=== PATIENT | female | born 1980 | race African-American/Black ===

== ENCOUNTER 2020-07-08 09:42 | Inpatient (IN) | payer BC ==
[2020-07-08 11:05] VITALS: BMI 23.3
[2020-07-08] MEDS ORDERED: LOPERAMIDE HCL 2 MG CAPSULE PO PRN (15:19)
[2020-07-08] MEDS ORDERED: guaiFENesin 200 MG/10 ML 10 ML UNIT-DOSE CUPS PO PRN (15:19)
[2020-07-08] MEDS ORDERED: MAGNESIUM HYDROX 2400MG/30ML ORAL SUSPENSION 30 ML CUP PO PRN (15:19)
[2020-07-08] MEDS ORDERED: MAG HYDROX/AL HYDROX/SIMETH 30 ML UNIT-DOSE CUP PO PRN (15:19)
[2020-07-08] MEDS ORDERED: P-EPHED 60MG/TRIPROLIDI 2.5MG TABLET PO PRN (15:19)
[2020-07-08] MEDS ORDERED: MAGNESIUM CITRATE 300 ML BOTTLE PO PRN (15:19)
[2020-07-08] MEDS: hydrOXYzine PAMOATE 25 MG CAPSULE (FP) PO SCH ×2 (18:07→22:01)
[2020-07-08] MEDS: MELATONIN 5 MG TABLETS PO SCH (22:01)
[2020-07-08] MEDS: THIAMINE HCL 100 MG TABLET (FP) PO SCH (22:01)
[2020-07-08] MEDS: IBUPROFEN 400 MG TABLET (FP) PO PRN (22:26)
[2020-07-09] MEDS: hydrOXYzine PAMOATE 25 MG CAPSULE (FP) PO SCH ×2 (06:34→10:13)
[2020-07-09] MEDS ORDERED: PT OWN MED DRAWER 7, Y5N ONE ×3 (09:01→14:05)
[2020-07-09] MEDS: PRENATAL VITAMINS W/ FOLIC ACID TABLET (FP) PO SCH (10:11)
[2020-07-09] MEDS: BICTEGRAV/EMTRICIT/TENOFOV (BIKTARVY) 50-200-25 MG TABLET PO SCH (10:12)
[2020-07-09] MEDS: levETIRAcetam 500 MG TABLET (FP) PO SCH (10:12)
[2020-07-09 11:37] LABS: HEMATOCRIT 35.7 % (32.4-45.2); HEMOGLOBIN 11.8 GM/dL (10.7-15.3); MCH 27.6 pg (25.7-33.7); MEAN CELL VOLUME 83.6 fl (80-96); MEAN PLT VOLUME 7.7 fl (7.5-11.1); PLATELET COUNT 367 K/MM3 (134-434); RBC 4.27 M/mm3 (3.60-5.2); RDW 14.9 % (11.6-15.6); WHITE BLOOD COUNT 3.6 K/mm3 (4.0-10.0)
[2020-07-09 11:48] LABS: BLOOD UREA NITROGEN 13.4 mg/dL (7-18)
[2020-07-09 11:49] LABS: ALBUMIN 3.4 g/dl (3.4-5.0)
[2020-07-09 11:50] LABS: BILIRUBIN,TOTAL 0.2 mg/dL (0.2-1)
[2020-07-09 11:52] LABS: CREATININE 0.9 mg/dL (0.55-1.3)
[2020-07-09] MEDS ORDERED: hydrOXYzine PAMOATE 25 MG CAPSULE (FP) PO PRN (12:06)
[2020-07-09] MEDS: SULFAMETHOXAZOLE/TRIMETHOPRIM 400MG/80MG S.S. TABLET PO SCH (14:03)
[2020-07-09] MEDS: ACETAMINOPHEN 325 MG TABLET (FP) PO PRN (14:05)
[2020-07-09] MEDS: THIAMINE HCL 100 MG TABLET (FP) PO SCH (21:46)
[2020-07-09] MEDS: traZODone HCL 50 MG TABLET (FP) PO SCH (21:46)
[2020-07-09] MEDS: MELATONIN 5 MG TABLETS PO SCH (21:46)
[2020-07-10] MEDS ORDERED: PT OWN MED DRAWER 7, Y5N ONE (08:49)
[2020-07-10] MEDS: levETIRAcetam 500 MG TABLET (FP) PO SCH (10:07)
[2020-07-10] MEDS: PRENATAL VITAMINS W/ FOLIC ACID TABLET (FP) PO SCH (10:07)
[2020-07-10] MEDS: BICTEGRAV/EMTRICIT/TENOFOV (BIKTARVY) 50-200-25 MG TABLET PO SCH (10:07)
[2020-07-10] MEDS: SULFAMETHOXAZOLE/TRIMETHOPRIM 400MG/80MG S.S. TABLET PO SCH (10:08)
[2020-07-10] MEDS: ACETAMINOPHEN 325 MG TABLET (FP) PO PRN (16:19)
[2020-07-10] MEDS: MELATONIN 5 MG TABLETS PO SCH (21:34)
[2020-07-10] MEDS: THIAMINE HCL 100 MG TABLET (FP) PO SCH (21:34)
[2020-07-10] MEDS: traZODone HCL 50 MG TABLET (FP) PO SCH (21:34)
[2020-07-11] MEDS ORDERED: PT OWN MED DRAWER 7, Y5N ONE (08:49)
[2020-07-11] MEDS: PRENATAL VITAMINS W/ FOLIC ACID TABLET (FP) PO SCH (09:56)
[2020-07-11] MEDS: levETIRAcetam 500 MG TABLET (FP) PO SCH (09:57)
[2020-07-11] MEDS: SULFAMETHOXAZOLE/TRIMETHOPRIM 400MG/80MG S.S. TABLET PO SCH (09:57)
[2020-07-11] MEDS: BICTEGRAV/EMTRICIT/TENOFOV (BIKTARVY) 50-200-25 MG TABLET PO SCH (09:58)
[2020-07-11] MEDS: IBUPROFEN 400 MG TABLET (FP) PO PRN (15:10)
[2020-07-11 18:07] LABS: EPI CELLS >36 /uL (0-25.1); HYALINE CASTS 1 /uL (0-3.1); URINE APPEARANCE CLOUDY; URINE BACTERIA 3353 /uL (0-1359); URINE BILIRUBIN NEGATIVE (NEGATIVE); URINE COLOR YELLOW; URINE GLUCOSE (UA) NEGATIVE (NEGATIVE); URINE KETONE NEGATIVE (NEGATIVE); URINE LEUK ESTERASE TRACE (NEGATIVE); URINE NITRITE NEGATIVE (NEGATIVE); URINE PROTEIN NEGATIVE (NEGATIVE); URINE RBC 40 /uL (0-23.9); URINE UROBILINOGEN 0.2 mg/dL (0.2-1.0); URINE WBC 63 /uL (0-25.8)
[2020-07-11] MEDS: traZODone HCL 50 MG TABLET (FP) PO SCH (21:39)
[2020-07-11] MEDS: THIAMINE HCL 100 MG TABLET (FP) PO SCH (21:40)
[2020-07-11] MEDS: MELATONIN 5 MG TABLETS PO SCH (21:40)
[2020-07-12 07:19] VITALS: BP 114/73; PULSE 52; TEMP 97.6
[2020-07-12] MEDS: levETIRAcetam 500 MG TABLET (FP) PO SCH (10:04)
[2020-07-12] MEDS: PRENATAL VITAMINS W/ FOLIC ACID TABLET (FP) PO SCH (10:04)
[2020-07-12] MEDS: SULFAMETHOXAZOLE/TRIMETHOPRIM 400MG/80MG S.S. TABLET PO SCH (10:05)
[2020-07-12] MEDS: BICTEGRAV/EMTRICIT/TENOFOV (BIKTARVY) 50-200-25 MG TABLET PO SCH (10:05)
[2020-07-13 10:07] LABS: SARS-CoV-2 NAA Not Detected (Not Detected)
== END 2020-07-12 11:00 | disposition home or self-care (01) | DRG 772 ==
LOC: YASAS 09:42 → Y5N 15:38
PROVIDERS: ADMIT Allergy & Immunology; ATTEND Allergy & Immunology
PROC: HZ42ZZZ Group Counseling for Substance Abuse Treatment, Cognitive-Behavioral (ICD-10-PCS; principal; 2020-07-08)
DX: F14.20 Cocaine dependence, uncomplicated (principal); F10.20 Alcohol dependence, uncomplicated; F11.10 Opioid abuse, uncomplicated; F17.210 Nicotine dependence, cigarettes, uncomplicated; F31.9 Bipolar disorder, unspecified; F41.9 Anxiety disorder, unspecified; Z21 Asymptomatic human immunodeficiency virus [HIV] infection status; G40.909 Epilepsy, unspecified, not intractable, without status epilepticus; Z62.810 Personal history of physical and sexual abuse in childhood; Z86.59 Personal history of other mental and behavioral disorders
CPT/HCPCS: 36415; 80053; 81003; 81025; 85027; 86780; 93005; 93010; C9803; U0003; U0005

== ENCOUNTER 2021-09-27 18:57 | Inpatient (IN) | payer BC ==
[2021-09-27 19:39] VITALS: BMI 20.5
[2021-09-27] MEDS ORDERED: BISMUTH SUBSALICYLATE 524 MG/30 ML PO PRN (19:59)
[2021-09-27] MEDS ORDERED: ACETAMINOPHEN 325 MG TABLET (FP) PO PRN (19:59)
[2021-09-27] MEDS ORDERED: IBUPROFEN 600 MG TABLET (FP) PO PRN (19:59)
[2021-09-27] MEDS ORDERED: ONDANSETRON *ODT* 4 MG TABLET SL PRN (19:59)
[2021-09-27] MEDS ORDERED: MAG HYDROX/AL HYDROX/SIMETH 30 ML UNIT-DOSE CUP PO PRN (19:59)
[2021-09-27] MEDS ORDERED: LOPERAMIDE HCL 2 MG CAPSULE PO PRN (19:59)
[2021-09-27] MEDS ORDERED: METHOCARBAMOL 500 MG TABLET PO PRN (19:59)
[2021-09-27] MEDS ORDERED: BENZOCAINE/MENTHOL (CHLORASEPTIC ) LOZENGE MM PRN (19:59)
[2021-09-27] MEDS ORDERED: DICYCLOMINE HCL 10 MG CAPSULE PO PRN (19:59)
[2021-09-27] MEDS ORDERED: MAGNESIUM CITRATE 300 ML BOTTLE PO PRN (19:59)
[2021-09-27] MEDS ORDERED: MAGNESIUM HYDROX 2400MG/30ML ORAL SUSPENSION 30 ML CUP PO PRN (19:59)
[2021-09-27] MEDS ORDERED: IBUPROFEN 400 MG TABLET (FP) PO PRN (19:59)
[2021-09-27] MEDS ORDERED: NICOTINE 10 MG CARTRIDGE (INHALER) IH PRN (19:59)
[2021-09-27] MEDS: ACETAMINOPHEN 325 MG TABLET (FP) PO PRN (23:09)
[2021-09-27] MEDS: THIAMINE HCL 100 MG TABLET (FP) PO SCH (23:09)
[2021-09-27] MEDS: MELATONIN 5 MG TABLETS PO SCH (23:13)
[2021-09-27] MEDS: hydrOXYzine PAMOATE 25 MG CAPSULE (FP) PO SCH (23:14)
[2021-09-28] MEDS: hydrOXYzine PAMOATE 25 MG CAPSULE (FP) PO SCH ×5 (06:36→22:20)
[2021-09-28] MEDS: ACETAMINOPHEN 325 MG TABLET (FP) PO PRN (06:37)
[2021-09-28] MEDS: PRENATAL VITAMINS W/ FOLIC ACID TABLET (FP) PO SCH (10:52)
[2021-09-28 11:13] LABS: HEMATOCRIT 32.1 % (32.4-45.2); HEMOGLOBIN 10.4 GM/dL (10.7-15.3); MCH 26.2 pg (25.7-33.7); MCHC 32.5 g/dl (32.0-36.0); MEAN CELL VOLUME 80.7 fl (80-96); MEAN PLT VOLUME 7.7 fl (7.5-11.1); PLATELET COUNT 243 10^3/uL (134-434); RBC 3.98 M/mm3 (3.60-5.2); RDW 14.9 % (11.6-15.6)
[2021-09-28 11:47] LABS: CALCIUM 8.5 mg/dL (8.5-10.1)
[2021-09-28 11:49] LABS: BLOOD UREA NITROGEN 17.8 mg/dL (7-18)
[2021-09-28 11:51] LABS: CREATININE 0.8 mg/dL (0.55-1.3)
[2021-09-28 11:52] LABS: BILIRUBIN,TOTAL 0.2 mg/dL (0.2-1); TOT PROT 6.7 g/dl (6.4-8.2)
[2021-09-28] MEDS: THIAMINE HCL 100 MG TABLET (FP) PO SCH (22:20)
[2021-09-28] MEDS: MELATONIN 5 MG TABLETS PO SCH (22:20)
[2021-09-29] MEDS: hydrOXYzine PAMOATE 25 MG CAPSULE (FP) PO SCH ×2 (07:37→10:23)
[2021-09-29] MEDS: PRENATAL VITAMINS W/ FOLIC ACID TABLET (FP) PO SCH (10:23)
[2021-09-29 12:40] VITALS: BP 109/64; PULSE 65; TEMP 98.3
== END 2021-09-29 14:22 | disposition home or self-care (01) | DRG 773 ==
LOC: YASAS 18:57 → Y6N 20:28 → Y3N 21:00
PROVIDERS: ADMIT Allergy & Immunology; ATTEND Surgery
PROC: HZ2ZZZZ Detoxification Services for Substance Abuse Treatment (ICD-10-PCS; principal; 2021-09-27)
DX: F11.23 Opioid dependence with withdrawal (principal); F14.20 Cocaine dependence, uncomplicated; F17.210 Nicotine dependence, cigarettes, uncomplicated; Z21 Asymptomatic human immunodeficiency virus [HIV] infection status; G62.9 Polyneuropathy, unspecified; G40.909 Epilepsy, unspecified, not intractable, without status epilepticus; I69.854 Hemiplegia and hemiparesis following other cerebrovascular disease affecting left non-dominant side
CPT/HCPCS: 36415; 80053; 81025; 85027; 86780; C9803-CS; U0003; U0005

== ENCOUNTER 2023-01-08 19:48 | Inpatient (IN) | payer BC ==
[2023-01-08 20:55] VITALS: BMI 22.1
[2023-01-08] MEDS ORDERED: levETIRAcetam 500 MG TABLET (FP) PO ONE (23:13)
[2023-01-08] MEDS: levETIRAcetam 500 MG TABLET (FP) PO SCH (23:13)
[2023-01-08] MEDS ORDERED: guaiFENesin 600 MG TABLET.ER (FP) PO PRN (23:37)
[2023-01-08] MEDS ORDERED: ACETAMINOPHEN 325 MG TABLET (FP) PO PRN (23:37)
[2023-01-08] MEDS ORDERED: hydrOXYzine PAMOATE 25 MG CAPSULE (FP) PO PRN (23:37)
[2023-01-08] MEDS ORDERED: P-EPHED 60MG/TRIPROLIDI 2.5MG TABLET PO PRN (23:37)
[2023-01-08] MEDS ORDERED: BENZONATATE 200 MG CAPSULE PO PRN (23:37)
[2023-01-08] MEDS ORDERED: LOPERAMIDE HCL 2 MG CAPSULE PO PRN (23:37)
[2023-01-08] MEDS ORDERED: NALOXONE HCL 0.4 MG/ML VIAL IM PRN (23:37)
[2023-01-08] MEDS ORDERED: IBUPROFEN 400 MG TABLET (FP) PO PRN (23:37)
[2023-01-08] MEDS ORDERED: NALOXONE HCL (KLOXXADO) 8 MG SPRAY NS PRN (23:37)
[2023-01-08] MEDS ORDERED: COLLOIDAL OATMEAL 1 BAR EACH TP PRN (23:37)
[2023-01-08] MEDS ORDERED: MAGNESIUM HYDROX 2400MG/30ML ORAL SUSPENSION 30 ML CUP PO PRN (23:37)
[2023-01-08] MEDS ORDERED: BENZOCAINE/MENTHOL (CHLORASEPTIC ) LOZENGE MM PRN (23:37)
[2023-01-08] MEDS ORDERED: POLYETHYLENE GLYCOL (HEALTHYLAX) 3350 17 GM PACKET PO PRN (23:37)
[2023-01-08] MEDS ORDERED: MAG HYDROX/AL HYDROX/SIMETH 30 ML UNIT-DOSE CUP PO PRN (23:37)
[2023-01-08] MEDS ORDERED: IBUPROFEN 600 MG TABLET (FP) PO ONE (23:53)
[2023-01-09] MEDS: MELATONIN 5 MG TABLETS PO SCH ×2 (02:47→21:20)
[2023-01-09] MEDS: PRENATAL VITAMINS W/ FOLIC ACID TABLET (FP) PO SCH (10:43)
[2023-01-09] MEDS: levETIRAcetam 500 MG TABLET (FP) PO SCH ×2 (10:43→21:20)
[2023-01-09] MEDS: SULFAMETHOXAZOLE/TRIMETHOPRIM 400MG/80MG S.S. TABLET PO SCH (11:46)
[2023-01-09] MEDS: risperiDONE 0.5 MG TABLET PO SCH ×2 (11:46→21:20)
[2023-01-09 11:47] LABS: CHLORIDE 111 mmol/L (98-107); SODIUM 141 mmol/L (136-145)
[2023-01-09 11:50] LABS: ALBUMIN 2.8 g/dl (3.4-5.0); ANION GAP 7 mmol/L (4-13); BLOOD UREA NITROGEN 15.5 mg/dL (7-18); CO2 23 mmol/L (21-32); GLUCOSE,RANDOM 111 mg/dL (74-106)
[2023-01-09 11:53] LABS: CREATININE 0.9 mg/dL (0.55-1.3); SGOT/AST 24 U/L (15-37); SGPT/ALT 20 U/L (13-61)
[2023-01-09 11:55] LABS: BILIRUBIN,TOTAL 0.4 mg/dL (0.2-1); TOT PROT 6.4 g/dl (6.4-8.2)
[2023-01-09 11:56] LABS: ALK PHOS 53 U/L (45-117); HEMATOCRIT 32.3 % (32.4-45.2); HEMOGLOBIN 10.5 GM/dL (10.7-15.3); MCH 26.3 pg (25.7-33.7); MCHC 32.5 g/dl (32.0-36.0); MEAN CELL VOLUME 80.7 fl (80-96); PLATELET COUNT 243 10^3/uL (134-434); RDW 15.4 % (11.6-15.6); WHITE BLOOD COUNT 3.5 K/mm3 (4.0-10.0)
[2023-01-09 12:04] LABS: EPI CELLS 15 /uL (0-25.1); HYALINE CASTS 0 /uL (0-3.1); URINE APPEARANCE CLEAR; URINE BACTERIA 94 /uL (0-1359); URINE BILIRUBIN NEGATIVE (NEGATIVE); URINE COLOR YELLOW; URINE GLUCOSE (UA) NEGATIVE (NEGATIVE); URINE KETONE NEGATIVE (NEGATIVE); URINE LEUK ESTERASE 1+ (NEGATIVE); URINE NITRITE NEGATIVE (NEGATIVE); URINE PROTEIN NEGATIVE (NEGATIVE); URINE RBC 6 /uL (0-23.9); URINE UROBILINOGEN 0.2 mg/dL (0.2-1.0); URINE WBC 19 /uL (0-25.8)
[2023-01-09 12:17] LABS: SYPHILIS W/ RPR CONF NON-REACTIVE (NONREACTIVE)
[2023-01-09] MEDS ORDERED: TUBERCULIN PPD 5 TU/0.1ML VIAL ID ONE (15:08)
[2023-01-09] MEDS: IBUPROFEN 600 MG TABLET (FP) PO PRN ×3 (17:00→21:20)
[2023-01-09] MEDS: THIAMINE HCL 100 MG TABLET (FP) PO SCH (21:20)
[2023-01-10] MEDS: PRENATAL VITAMINS W/ FOLIC ACID TABLET (FP) PO SCH (10:27)
[2023-01-10] MEDS: levETIRAcetam 500 MG TABLET (FP) PO SCH ×2 (10:27→21:07)
[2023-01-10] MEDS: risperiDONE 0.5 MG TABLET PO SCH ×2 (10:28→21:07)
[2023-01-10] MEDS: SULFAMETHOXAZOLE/TRIMETHOPRIM 400MG/80MG S.S. TABLET PO SCH (10:29)
[2023-01-10 14:40] LABS: HIV INTERPRETATION PRESUMPTIVE POSITIVE (NEGATIVE)
[2023-01-10] MEDS: IBUPROFEN 600 MG TABLET (FP) PO PRN (20:36)
[2023-01-10] MEDS: THIAMINE HCL 100 MG TABLET (FP) PO SCH (21:07)
[2023-01-10] MEDS: MELATONIN 5 MG TABLETS PO SCH (21:07)
[2023-01-11 07:19] VITALS: BP 144/100; PULSE 70; RESP 16; TEMP 98.2
[2023-01-11] MEDS: risperiDONE 0.5 MG TABLET PO SCH (09:51)
[2023-01-11] MEDS: PRENATAL VITAMINS W/ FOLIC ACID TABLET (FP) PO SCH (09:51)
[2023-01-11] MEDS: levETIRAcetam 500 MG TABLET (FP) PO SCH (09:51)
[2023-01-11] MEDS: SULFAMETHOXAZOLE/TRIMETHOPRIM 400MG/80MG S.S. TABLET PO SCH (09:52)
== END 2023-01-11 10:00 | disposition left against medical advice (07) | DRG 770 ==
LOC: YASAS 19:48 → Y5N 01-09 01:40
PROVIDERS: ADMIT Allergy & Immunology; ATTEND Psychiatry & Neurology Pain Medicine
PROC: HZ42ZZZ Group Counseling for Substance Abuse Treatment, Cognitive-Behavioral (ICD-10-PCS; principal; 2023-01-09)
DX: F11.20 Opioid dependence, uncomplicated (principal); F14.20 Cocaine dependence, uncomplicated; F17.210 Nicotine dependence, cigarettes, uncomplicated; F31.9 Bipolar disorder, unspecified; F41.9 Anxiety disorder, unspecified; F19.24 Other psychoactive substance dependence with psychoactive substance-induced mood disorder; B20 Human immunodeficiency virus [HIV] disease; M06.9 Rheumatoid arthritis, unspecified; Z86.69 Personal history of other diseases of the nervous system and sense organs
CPT/HCPCS: 36415; 80053; 80307; 81003; 81025; 85027; 86780; 86803; 87389; 87635

== ENCOUNTER 2023-06-26 11:17 | Inpatient (IN) | payer BC ==
[2023-06-26 11:58] VITALS: BMI 23.0
[2023-06-26] MEDS ORDERED: BENZONATATE 200 MG CAPSULE PO PRN (13:03)
[2023-06-26] MEDS ORDERED: BENZOCAINE/MENTHOL (CHLORASEPTIC ) LOZENGE MM PRN (13:03)
[2023-06-26] MEDS ORDERED: NALOXONE HCL 0.4 MG/ML VIAL IM PRN (13:03)
[2023-06-26] MEDS ORDERED: LOPERAMIDE HCL 2 MG CAPSULE PO PRN (13:03)
[2023-06-26] MEDS ORDERED: hydrOXYzine PAMOATE 25 MG CAPSULE (FP) PO PRN (13:03)
[2023-06-26] MEDS ORDERED: guaiFENesin 600 MG TABLET.ER (FP) PO PRN (13:03)
[2023-06-26] MEDS ORDERED: MAGNESIUM HYDROX 2400MG/30ML ORAL SUSPENSION 30 ML CUP PO PRN (13:03)
[2023-06-26] MEDS ORDERED: NALOXONE HCL (KLOXXADO) 8 MG SPRAY NS PRN (13:03)
[2023-06-26] MEDS ORDERED: POLYETHYLENE GLYCOL (HEALTHYLAX) 3350 17 GM PACKET PO PRN (13:03)
[2023-06-26] MEDS ORDERED: NICOTINE 7 MG/24 HOURS TOPICAL PATCH TD ONE (13:41)
[2023-06-26] MEDS ORDERED: PRENATAL VITAMINS W/ FOLIC ACID TABLET (FP) PO ONE (13:41)
[2023-06-26] MEDS: PRENATAL VITAMINS W/ FOLIC ACID TABLET (FP) PO SCH (13:47)
[2023-06-26] MEDS: NICOTINE 7 MG/24 HOURS TOPICAL PATCH TD SCH (13:47)
[2023-06-26] MEDS: GABAPENTIN 300 MG CAPSULE PO SCH (15:17)
[2023-06-26] MEDS: levETIRAcetam 500 MG TABLET (FP) PO SCH (21:27)
[2023-06-26] MEDS: MELATONIN 5 MG TABLETS PO SCH (21:27)
[2023-06-26] MEDS: THIAMINE HCL 100 MG TABLET (FP) PO SCH (21:27)
[2023-06-26] MEDS: traZODone HCL 50 MG TABLET (FP) PO SCH (21:27)
[2023-06-27] MEDS: BICTEGRAV/EMTRICIT/TENOFOV (BIKTARVY) 50-200-25 MG TABLET PO SCH (07:00)
[2023-06-27] MEDS: SULFAMETHOXAZOLE/TRIMETHOPRIM 800MG/160MG D.S. TABLET PO SCH (09:37)
[2023-06-27] MEDS: ALLOPURINOL 300 MG TABLET (FP) PO SCH (10:07)
[2023-06-27 11:52] LABS: HEMATOCRIT 34.1 % (32.4-45.2); HEMOGLOBIN 10.9 GM/dL (10.7-15.3); MCH 26.5 pg (25.7-33.7); MEAN CELL VOLUME 82.7 fl (80-96); MEAN PLT VOLUME 7.6 fl (7.5-11.1); PLATELET COUNT 265 10^3/uL (134-434); RBC 4.12 M/mm3 (3.60-5.2); RDW 15.7 % (11.6-15.6); WHITE BLOOD COUNT 4.7 K/mm3 (4.0-10.0)
[2023-06-27 12:02] LABS: CALCIUM 8.8 mg/dL (8.5-10.1)
[2023-06-27 12:03] LABS: ALBUMIN 3.2 g/dl (3.4-5.0)
[2023-06-27 12:05] LABS: CREATININE 0.9 mg/dL (0.55-1.3)
[2023-06-27 12:06] LABS: BILIRUBIN,TOTAL 0.2 mg/dL (0.2-1)
[2023-06-27 15:37] LABS: SYPHILIS W/ RPR CONF NON-REACTIVE (NONREACTIVE)
[2023-06-28] MEDS: MAG HYDROX/AL HYDROX/SIMETH 30 ML UNIT-DOSE CUP PO PRN (15:38)
[2023-06-29] MEDS: IBUPROFEN 600 MG TABLET (FP) PO PRN (12:33)
[2023-06-29 14:28] LABS: PH,URINE 7.5 (5.0-8.0); URINE APPEARANCE CLEAR; URINE BILIRUBIN NEGATIVE (NEGATIVE); URINE COLOR YELLOW; URINE GLUCOSE (UA) NEGATIVE (NEGATIVE); URINE KETONE NEGATIVE (NEGATIVE); URINE LEUK ESTERASE NEGATIVE (NEGATIVE); URINE NITRITE NEGATIVE (NEGATIVE); URINE PROTEIN NEGATIVE (NEGATIVE); URINE UROBILINOGEN 0.2 mg/dL (0.2-1.0)
[2023-06-29] MEDS: DOXYCYCLINE HYCLATE 100 MG TABLET PO SCH (18:31)
[2023-06-30] MEDS: ACETAMINOPHEN 325 MG TABLET (FP) PO PRN (14:34)
[2023-07-01] MEDS: IBUPROFEN 400 MG TABLET (FP) PO PRN (13:02)
[2023-07-02] MEDS: metroNIDAZOLE 250 MG TABLET PO SCH (10:24)
[2023-07-02] MEDS: QUEtiapine FUMARATE 100 MG TABLET (FP) PO SCH (21:32)
[2023-07-03] MEDS: QUEtiapine FUMARATE 50 MG TABLET PO SCH ×2 (10:06→21:34)
[2023-07-05 07:12] VITALS: RESP 18
[2023-07-07 06:46] VITALS: BP 107/79; PULSE 74; TEMP 98.2
== END 2023-07-07 12:00 | disposition home or self-care (01) | DRG 772 ==
LOC: YASAS 11:17 → Y5N 13:41
PROVIDERS: ADMIT Allergy & Immunology; ATTEND Psychiatry & Neurology Pain Medicine
PROC: HZ42ZZZ Group Counseling for Substance Abuse Treatment, Cognitive-Behavioral (ICD-10-PCS; principal; 2023-06-26)
DX: F11.20 Opioid dependence, uncomplicated (principal); F14.20 Cocaine dependence, uncomplicated; F17.210 Nicotine dependence, cigarettes, uncomplicated; F31.9 Bipolar disorder, unspecified; F41.8 Other specified anxiety disorders; B20 Human immunodeficiency virus [HIV] disease; G40.909 Epilepsy, unspecified, not intractable, without status epilepticus; G47.00 Insomnia, unspecified; A59.01 Trichomonal vulvovaginitis; M06.9 Rheumatoid arthritis, unspecified; Z79.899 Other long term (current) drug therapy; Z62.810 Personal history of physical and sexual abuse in childhood; Z63.8 Other specified problems related to primary support group
CPT/HCPCS: 36415; 80053; 80177; 81003; 81025; 82962; 85027; 86780; 86803; 87491; 87591; 87661; 87811; 93005; 93010